=== PATIENT | female | born 1940 | race Caucasian/White ===

== ENCOUNTER 2016-11-22 08:13 | Emergency (ER) | payer OTHER ==
[~2016-11-22] VITALS: Ht 162.6 cm; Wt 52.6 kg
[2016-11-22 08:18] VITALS: BP 157/68; PULSE 99; RESP 16; TEMP 98.3; O2SAT 98
--- NOTE | 2016-11-22 08:26 | NUR ---
Patient to ER bed 7 to gown for evaluation. Side rails up. Report given to Cailin ALCANTARA.
[2016-11-22] MEDS ORDERED: KETOROLAC TROMETHAMINE 30 MG VIAL IVP ONE (08:45)
[2016-11-22] MEDS ORDERED: NACL 0.9% 1,000 ML IV ONE (08:45)
[2016-11-22 08:55] LABS: BILIRUBIN,URINE NEGATIVE (NEGATIVE); CLARITY/URINE CLEAR (CLEAR); COLOR,URINE YELLOW (YELLOW); GLUCOSE,URINE NEGATIVE (NEGATIVE); KETONES,URINE NEGATIVE (NEGATIVE); LEUKOCYTE ESTERASE ,URINE NEGATIVE (NEGATIVE); NITRITE, URINE POSITIVE (NEGATIVE); PROTEIN URINE NEGATIVE (NEGATIVE); UROBILINOGEN,URINE 0.2 (0.2-1.0)
--- NOTE | 2016-11-22 08:58 | NUR ---
CONSENT SIGNED FOR CT WITH CONTRAST, DAUGHTER AT BEDSIDE.
[2016-11-22 09:04] LABS: BASOPHILS # (AUTO) 0.1 K/uL (0.0-0.2); BASOPHILS % (AUTO) 1.3 % (0.0-2.0); EOSINOPHILS % (AUTO) 0.4 % (0.0-4.0); HEMATOCRIT 42.6 % (36-48); HEMOGLOBIN 14.7 g/dL (12.0-16.0); LYMPHOCYTES # (AUTO) 1.4 K/uL (1.0-5.5); LYMPHOCYTES % (AUTO) 16.7 % (20.5-51.5); MEAN CORPUSCULAR HEMOGLOBIN 31 pg (27-31); MEAN CORPUSCULAR HGB CONC 34 % (32-36); MEAN CORPUSCULAR VOLUME 90 fL (79.0-98.0); MONOCYTES # (AUTO) 0.4 K/uL (0.0-1.0); MONOCYTES % (AUTO) 5.1 % (1.7-9.3); NEUTROPHILS # (AUTO) 6.6 K/uL (1.8-7.7); NEUTROPHILS % (AUTO) 76.5 % (40.0-70.0); PLATELET COUNT (AUTO) 312 K/uL (130-430); RED BLOOD CELL COUNT(AUTO) 4.75 MIL/uL (4.2-6.2); RED CELL DISTRIBUTION WIDTH 11.3 % (9.0-15.0); WHITE BLOOD COUNT (AUTO) 8.5 K/uL (4.8-10.8)
[2016-11-22 09:05] LABS: BLOOD, URINE TRACE (NEGATIVE)
[2016-11-22 09:06] LABS: ANION GAP 8 (5-15); CHLORIDE 103 mmol/L (98-107); CREATININE 0.61 mg/dL (0.55-1.30); GLUCOSE 117 mg/dL (70-99); POTASSIUM 3.1 mmol/L (3.5-5.1); SODIUM SERUM 140 mmol/L (136-145); UREA NITROGEN, BLOOD 13 mg/dL (8-21)
[2016-11-22 09:09] LABS: PROTHROMBIN TIME 10.6 SECS (9.5-12.5)
[2016-11-22 09:10] LABS: ALANINE AMINOTRANSFERASE 20 U/L (12-78); ALBUMIN 4.2 g/dL (3.4-4.8); ASPARTATE AMINOTRANSFERASE 10 U/L (10-37); CHOLESTEROL 134 mg/dL (<200); HDL CHOLESTEROL 40 mg/dL (>55); LDL CHOLESTEROL 53 mg/dL (<100); TOTAL BILIRUBIN 0.5 mg/dL (0.0-1.0); TOTAL PROTEIN, SERUM 7.9 g/dL (6.4-8.3); TRIGLYCERIDES 327 mg/dL (30-150)
[2016-11-22 09:12] LABS: BACTERIA,URINE FEW /HPF (None Seen); MUCUS,URINE None Seen /LPF (None Seen); RBC,URINE 0-3 /HPF (0-3); WBC,URINE 0-3 /HPF (0-3)
--- NOTE | 2016-11-22 09:28 | NUR ---
PT AMBULATORY TO RESTROOM, DAUGHTER ASSISTING
--- NOTE | 2016-11-22 09:52 | NUR ---
TAKEN TO RADIOLOGY VIA WHEELCHAIR.
[2016-11-22] MEDS ORDERED: IOHEXOL 100 ML IV ONE (09:54)
--- NOTE | 2016-11-22 10:25 | NUR ---
RESTING QUIETLY, NO CHANGES, DAUGHTER AT BEDSIDE
[2016-11-22] MEDS ORDERED: MAGNESIUM OXIDE 400 MG TABLET PO ONE (10:30)
[2016-11-22] MEDS ORDERED: POTASSIUM CHLORIDE 20 MEQ TAB.PRT.SR PO ONE (10:30)
[2016-11-22] MEDS ORDERED: ONDANSETRON HCL 4 MG/2 ML VIAL IVP ONE (11:00)
--- NOTE | 2016-11-22 11:10 | NUR ---
DR ARIZMENDI SPEAKING WITH PT AND PTS DAUGHTER ABOUT TEST RESULTS.
--- NOTE | 2016-11-22 11:19 | NUR ---
ULTRASOUND BEING DONE AT BEDSIDE AT THIS TIME
--- NOTE | 2016-11-22 11:42 | NUR ---
CARE ENDORSED TO BREANN
[2016-11-22] MEDS ORDERED: POTASSIUM CHLORIDE 20 MEQ/PKT PACKET PO ONE (11:45)
--- NOTE | 2016-11-22 12:03 | NUR ---
potassium liquid given, pt. tolerated well
--- NOTE | 2016-11-22 12:55 | NUR ---
Patient given written and verbal discharge instructions and verbalizes understanding. ER MD Ley discussed with patient the results and treatment provided. Patient in stable condition. ID arm band removed. IV catheter removed intact and dressing applied, no active bleeding. Rx of percocet, zofran given. Patient educated on pain management and to follow up with PMD. Pain Scale 0/10 Opportunity for questions provided and answered.
[2016-11-22 12:58] VITALS: BP 131/71; PULSE 84; RESP 16; TEMP 98.3; O2SAT 99
== END 2016-11-22 12:58 | disposition home or self-care (01) ==
LOC: SED 08:13
DX: R10.33 Periumbilical pain (principal); Z90.49 Acquired absence of other specified parts of digestive tract; Z90.710 Acquired absence of both cervix and uterus
CPT/HCPCS: 36415; 71010; 74177; 76700; 80053; 80061; 81000; 83880; 85025; 85610; 85730; 96361; 96374; 96375; 99285; J1885; J2405; J7030; Q9967